=== PATIENT | female | born 1965 | race Caucasian/White ===

== ENCOUNTER 2020-08-22 10:42 | Outpatient (REF) | payer OTHER, SELFPAY ==
[2020-08-22 13:54] LABS: Hematocrit 41.1 % (37-47); Hemoglobin 13.2 g/dl (12.0-16.0); Mean Corpuscular HGB Conc 32.1 g/dl (31.0-35.0); Mean Corpuscular Hemoglobin 30.3 pg (27.0-33.0); Mean Corpuscular Volume 94.3 fL (80-98); Platelet Count 199 X10*3/uL (160-400); Red Blood Count 4.36 X10*6/uL (4.20-5.50); Red Cell Distribution Width 14.3 % (11.0-16.0)
[2020-08-22 14:22] LABS: Alanine Aminotransferase 25 U/L (0-31); Albumin Level 4.1 g/dL (3.5-5.0); Alkaline Phosphatase 168 U/L (39-117); Anion Gap 16 (12-20); Aspartate Amino Transferase 15 U/L (5-31); Bilirubin Direct 0.2 mg/dL (0.0-0.5); Bilirubin Total 0.5 mg/dL (0.0-1.0); Blood Urea Nitrogen 12 mg/dL (9-16); Calcium 9.2 mg/dL (8.4-10.2); Carbon Dioxide 25 mmol/L (22-29); Chloride 103 mmol/L (96-108); Cholesterol 175 mg/dL; Estimated Glomerular Filt Rate > 60; Glucose Fasting 94 mg/dL (60-99); HDL Cholesterol 46 mg/dL; LDL Cholesterol Calculated 112 mg/dl; Potassium 4.2 mmol/L (3.3-5.1); Sodium 140 mmol/L (135-145); Total Protein 7.1 g/dL (6.5-8.0); Triglycerides 86 mg/dL
[2020-08-22 14:43] LABS: TSH reflex Free T4 1.64 uIU/mL (0.32-4.0)
== END 2020-08-22 10:43 | disposition home or self-care (01) ==
LOC: HO.HMGCLDS 10:42
PROVIDERS: PCP Hospitalist; Visit Provider Hospitalist
DX: Z00.00 Encounter for general adult medical examination without abnormal findings (principal)
CPT/HCPCS: 36415; 80048; 80061; 80076; 84443; 85027

== ENCOUNTER 2020-09-12 09:43 | Outpatient (REF) | payer OTHER, SELFPAY ==
[2020-09-16 16:42] LABS: HPV mRNA E6/E7 rflx Not Detected (Not Detected)
== END 2020-09-12 09:44 | disposition home or self-care (01) ==
LOC: HO.LAB 09:43
PROVIDERS: PCP Hospitalist; Visit Provider Obstetrics & Gynecology
DX: Z01.419 Encounter for gynecological examination (general) (routine) without abnormal findings (principal); Z11.51 Encounter for screening for human papillomavirus (HPV)
CPT/HCPCS: 36415; 58301; 87624; 88142

== ENCOUNTER → 2020-10-28 07:32 | Outpatient (BNVA) | payer OTHER, SELFPAY | PROVIDERS: PCP Hospitalist; Visit Provider Physician Assistant ==

== ENCOUNTER → 2020-11-05 14:47 | Outpatient (BNVA) | payer OTHER, SELFPAY | PROVIDERS: PCP Hospitalist; Visit Provider Obstetrics & Gynecology ==

== ENCOUNTER 2020-11-18 08:51 | Outpatient (REF) | payer OTHER, SELFPAY ==
--- NOTE | ~2020-11-18 | MM_ITS ---
EXAMINATION: MM SCREENING DIGITAL BREAST TOMOSYNTHESIS, BILATERAL CLINICAL INFORMATION: Screening. Asymptomatic. Age 55. Family history breast cancer, paternal aunt. Prior outside mammography from [place] currently unavailable. Priors have been requested by radiology staff. The lifetime risk of breast cancer based on the Tyrer-Cuzick Model is 12%. COMPARISON: None. TECHNIQUE: Digital breast tomosynthesis is performed in both the craniocaudal and mediolateral oblique views along with computer-aided detection (CAD). Synthesized 2D images are generated from the tomosynthesis. Additional bilateral CC and additional left MLO views are provided. FINDINGS: There are scattered areas of fibroglandular density (ACR BI-RADS breast composition Category b). There are no significant masses, abnormal calcifications, or other abnormalities. The axilla and skin contours are unremarkable. MM/MM tomosynthesis screening BI IMPRESSION: No mammographic evidence of malignancy. ASSESSMENT: BI-RADS 1: Negative RECOMMENDATION: 1. Routine annual mammography screening. 2. Prior outside mammography from [place] has been requested. If outside exam is made available, comparison will be made in an addendum report. This patient's information was entered into a reminder system with a target due date for their next mammogram.
== END 2020-11-18 08:52 | disposition home or self-care (01) ==
LOC: HO.MAMMO 08:51
PROVIDERS: PCP Hospitalist; Visit Provider Obstetrics & Gynecology
DX: Z12.31 Encounter for screening mammogram for malignant neoplasm of breast (principal)
CPT/HCPCS: 77063; 77067

== ENCOUNTER → 2020-11-19 15:19 | Outpatient (BNVA) | payer OTHER, SELFPAY | PROVIDERS: PCP Hospitalist; Visit Provider Obstetrics & Gynecology ==

== ENCOUNTER → 2020-11-28 13:06 | Outpatient (BNVA) | payer OTHER, SELFPAY | PROVIDERS: PCP Hospitalist; Visit Provider Obstetrics & Gynecology | DX: N95.8 Other specified menopausal and perimenopausal disorders (principal) | CPT/HCPCS: 57160 ==

== ENCOUNTER 2021-12-18 06:59 | Outpatient (REF) | payer OTHER, SELFPAY ==
[2021-12-18 11:30] LABS: Hematocrit 41.3 % (37.0-47.0); Hemoglobin 13.2 g/dl (12.0-16.0); Mean Corpuscular Volume 96.9 fL (80.0-98.0); Mean Platelet Volume 13.3 fL (9.4-12.3); PLT CLUMP 1; Red Blood Count 4.26 X10*6/uL (4.20-5.50); Red Cell Distribution Width 14.9 % (11.0-16.0)
[2021-12-18 12:16] LABS: Platelet Count 171 X10*3/uL (160-400); White Blood Count 7.2 X10*3/uL (4.8-10.8)
== END 2021-12-18 07:00 | disposition home or self-care (01) ==
LOC: HO.WFDLDS 06:59
PROVIDERS: Visit Provider Hospitalist
DX: Z00.00 Encounter for general adult medical examination without abnormal findings (principal)
CPT/HCPCS: 36415; 77063; 77067; 85027

== ENCOUNTER 2021-12-18 08:56 | Outpatient (REF) | payer OTHER, SELFPAY ==
--- NOTE | ~2021-12-18 | MM_ITS ---
EXAMINATION: MM SCREENING DIGITAL BREAST TOMOSYNTHESIS, BILATERAL CLINICAL INFORMATION: Screening. Asymptomatic. The lifetime risk of breast cancer based on the Tyrer-Cuzick Model is 13%. COMPARISON: Mammography: 11/18/2020; outside mammography 07/31/2018 ([facility], [place], [place]). TECHNIQUE: Digital breast tomosynthesis is performed in both the craniocaudal and mediolateral oblique views along with computer-aided detection (CAD). Synthesized 2D images are generated from the tomosynthesis. Additional left CC view is provided. FINDINGS: There are scattered areas of fibroglandular density (ACR BI-RADS breast composition Category b). There are no significant masses, abnormal calcifications, or other abnormalities. Parenchymal pattern is similar to prior studies and there is no developing density or architectural abnormality. The axilla and skin contours are unremarkable. There are no significant changes. MM/MM tomosynthesis screening BI IMPRESSION: No mammographic evidence of malignancy. ASSESSMENT: BI-RADS 1: Negative RECOMMENDATION: Routine annual mammography screening. This patient's information was entered into a reminder system with a target due date for their next mammogram.
== END 2021-12-18 08:57 | disposition home or self-care (01) ==
LOC: HO.MAMMO 08:56
PROVIDERS: PCP Hospitalist; Visit Provider Hospitalist
DX: Z12.31 Encounter for screening mammogram for malignant neoplasm of breast (principal)
CPT/HCPCS: 77063; 77067

== ENCOUNTER 2021-12-21 07:17 | Outpatient (REF) | payer OTHER, SELFPAY ==
[2021-12-21 11:54] LABS: Alanine Aminotransferase 23 U/L (0-31); Albumin Level 4.1 g/dL (3.5-5.0); Alkaline Phosphatase 152 U/L (39-117); Anion Gap 13 (12-20); Aspartate Amino Transferase 17 U/L (5-31); Bilirubin Total 0.4 mg/dL (0.0-1.0); Blood Urea Nitrogen 16 mg/dL (9-16); Calcium 9.4 mg/dL (8.4-10.2); Carbon Dioxide 28 mmol/L (22-29); Chloride 102 mmol/L (96-108); Cholesterol 178 mg/dL; Estimated Glomerular Filt Rate > 60; Glucose Fasting 98 mg/dL (60-99); HDL Cholesterol 47 mg/dL; LDL Cholesterol Calculated 111 mg/dl; Potassium 4.8 mmol/L (3.3-5.1); Sodium 138 mmol/L (135-145); Total Protein 7.1 g/dL (6.5-8.0); Triglycerides 104 mg/dL
[2021-12-21 12:03] LABS: TSH reflex Free T4 1.72 uIU/mL (0.32-4.0)
== END 2021-12-21 07:18 | disposition home or self-care (01) ==
LOC: HO.WFDLDS 07:17
PROVIDERS: Visit Provider Hospitalist
DX: Z00.00 Encounter for general adult medical examination without abnormal findings (principal)
CPT/HCPCS: 36415; 80053; 80061; 84443

== ENCOUNTER → 2022-09-09 08:48 | Outpatient (BNVA) | payer OTHER, SELFPAY | PROVIDERS: PCP Nurse Practitioner Family; Visit Provider Advanced Practice Midwife ==

== ENCOUNTER 2022-11-01 15:39 | Outpatient (REF) | payer OTHER, SELFPAY ==
[2022-11-02 13:23] LABS: Amphetamine Screen Urine Not Detected (Not Detect); Barbiturates, Urine Not Detected (Not Detect); Benzodiazepines Screen Urine Not Detected (Not Detect); Cannabinoid Screen Urine Not Detected (Not Detect); Cocaine Screen Urine Not Detected (Not Detect); Fentanyl, urine Not Detected (Not Detect); Opiate Screen Urine Not Detected (Not Detect); Phencyclidine Screen Urine Not Detected (Not Detect)
== END 2022-11-01 15:40 | disposition home or self-care (01) ==
LOC: HO.LNP 15:39
PROVIDERS: Visit Provider Family Medicine
DX: F32.9 Major depressive disorder, single episode, unspecified (principal); F41.9 Anxiety disorder, unspecified
CPT/HCPCS: 80307

== ENCOUNTER 2023-07-28 15:49 | Outpatient (AMB) | payer OTHER, SELFPAY ==
--- NOTE | 2023-07-28 08:38 | MHC.PC.OV ---
Vital Signs 07/28/23 15:50 Height 5 ft 4 in Weight 213 lb BMI 36.6 BP 132/64 Blood Pressure Location Lt brachial Pulse 82 Pulse Source Pulse Oximeter Pulse Oximetry (%) 97 Oxygen Delivery Method Room Air Intake Visit Reasons: Transfer of Care, anxiety / depression Allergies Sulfa (Sulfonamide Antibiotics) Allergy (Mild, Verified 11/01/22 15:48) rash Tobacco use date assessed: 07/28/23 Dental Screening Dental Screen Date: 07/28/23 Did you have a dental visit in the last 12 months?: Yes Did you have a dental problem in the last 6 months where you did not have access to dental care?: No Was dental information given to patient?: Patient has dentist HPI Transfer of Care, anxiety / depression HPI Details New?patient Prior?PCP: Last?office?visit/CPE: Acute?issue(s): Transfer care Acid reflux PMHx:??HLD, anxiety/depression - Has therapist and provider SurgHx: None FHx: Dad: NHL. Mom: CAD, COPD. SocHx: Smoking Cigs 1/2 ppd, EtOH Social. No drugs PFSH Medical History Smoker Depression Anxiety Family History Father Non-Hodgkin lymphoma Paternal Grandmother Colon cancer Mother COPD (chronic obstructive pulmonary disease) Maternal Aunt History of breast cancer Social History Household Members: Friend(s) Housing: Apartment Alcohol intake: current Alcohol intake frequency: holidays/special occasions only Patient Tobacco Use Status: Current everyday Tobacco user Tobacco use type: Cigarette Cigarette Packs Per Day: 0.5 Cigarettes Per Day: 10 e-Cigarette/Vaping Use: Never Used service: No Current occupational status: unemployed Sexual orientation: Straight/Heterosexual Gender identity: Female Cognitive needs: No Hearing needs: No Vision needs: No Questionnaire PHQ-9 Over the last 2 weeks, how often have you been bothered by any of the following problems? 1. Little interest or pleasure in doing things: nearly every day 2. Feeling down, depressed, or hopeless: several days 3. Trouble falling or staying asleep, or sleeping too much: several days 4. Feeling tired or having little energy: not at all 5. Poor appetite or overeating: nearly every day 6. Feeling bad about yourself - or that you are a failure or have let yourself or your family down: more than half the days 7. Trouble concentrating on things, such as reading the newspaper or watching television: not at all 8. Moving or speaking so slowly that other people could have noticed. Or the opposite - being so fidgety or restless that you have been moving around a lot more than usual: not at all 9. Thoughts that you would be better off or of hurting yourself in some way: several days Total score: 11 Source: Developed by Drs. Skyler Couch, Chelsie Restrepo, Aditya Roy and colleagues, with an educational germain from [employer]. Thrive Questionnaire Date Thrive assessed: 07/28/23 I am a: Patient What is your living situation today?: I have a steady place to live Within the past 12 months, did the food you bought not last and you didn't have the money to get more?: Never true Within the past 12 months, did you worry whether your food would run out before you got money to buy more?: Never true Do you have trouble paying for medicines?: No Do you have trouble getting transportation to medical appointments?: No Do you have trouble paying your heating and electricity bill?: No Do you have trouble taking care of your child, family member or friend?: No Do you have trouble with day-to-day activities such as bathing, preparing meals, shopping, managing finances, etc.?: No Are you currently unemployed and looking for a job?: No Are you interested in more education?: No THRIVE Score: 0 AUDIT C Alcohol Use Questionnaire (AUDIT-C) 1. How often do you have a drink containing alcohol?: Monthly or less 2. How many drinks containing alcohol do you have on a typical day when you are drinking?: 1 or 2 3. How often do you have six or more drinks on one occasion?: Never Total Score: 1 ZHOU-7 AMB Questionnaire ZHOU-7 Date ZHOU - 7 assessed: 07/28/23 Feeling nervous, anxious, or on edge: 1 = Several days Not being able to stop or control worryin = Several days Worrying too much about different things: 1 = Several days Trouble relaxin = Several days Being so restless that it is hard to sit still: 0 = Not at all Becoming easily annoyed or irritable: 1 = Several days Feeling afraid as if something awful might happen: 0 = Not at all Total ZHOU-7 score (0-4 normal; 5-9 mild; 10-14 moderate; 15-21 severe): 5 Source: Developed by Drs. Skyler Couch, Chelsie Restrepo, Aditya Roy and colleagues, with an educational germain from [employer]. Review of Systems Const Denies chills, Denies fatigue, Denies fever(s), Denies headache(s) and Denies weakness ENT Denies dizziness and Denies headache(s) Card Denies chest pain, Denies lightheadedness, Denies dyspnea and Denies other (Palpitations) Resp Denies cough, Denies dyspnea, Denies wheezing and Denies other ( shortness of breath) GI Details: GERD Musc Denies numbness and Denies tingling Neuro Denies dizziness, Denies headache(s), Denies numbness, Denies tingling, Denies paresthesias and Denies weakness Psych Denies anxiety and Denies depression Endo Denies fatigue Aller/Immun Denies wheezing Physical exam (Primary Care) Tobacco/Smoking Status: Tobacco use Status Tobacco use date assessed 12/15/21 07/28/23 08:39 Patient Tobacco Use Status Current everyday Tobacco 07/28/23 08:39 Tobacco use type Cigarette 07/28/23 08:39 e-Cigarette/Vaping Use Never Used 07/28/23 08:39 Thrive Assessment: Date of Thrive Assessment Date Thrive assessed 08/06/22 07/28/23 08:39 Const General: no acute distress and well developed Nutritional Appearance: well nourished Orientation/consciousness: patient oriented x3 HENMT Head: Yes normocephalic and Yes atraumatic Eyes General: appearance normal, both eyes and all related structures Pupils: Equal, round and reactive pupils present EOM: EOMs intact bilaterally Resp Other: Mildly?distant?breath?sounds?but?otherwise?clear?to?auscultation?bilaterally Effort & Inspection: normal respiratory effort Auscultation: clear to auscultation bilaterally Cardio Rate: regular rate Rhythm: regular rhythm Heart sounds: S1 normal heart sound present, S2 normal heart sound present, no gallops, no murmurs and no rubs Neuro General: patient oriented x3 and gait normal Cranial nerves: Yes Equal, round and reactive pupils present Psych Affect: normal affect Assessment and Plan Assessment & Plan (1) GERD (gastroesophageal reflux disease): Code(s): K21.9 - Gastro-esophageal reflux disease without esophagitis Plan: Significant?GERD?and?gastritis?symptoms. She?has?been?taking?famotidine?OTC Will?give?her?a?script?for?this Also?referring?her?to?GI (2) Anxiety and depression: Code(s): F41.9 - Anxiety disorder, unspecified; F32.9 - Major depressive disorder, single episode, unspecified Plan: Has?significant?stressors?including?work?and?living?arrangements?with?her?ex- She?has?a?therapist?whom?she?sees?regularly?and?a psych?med?provider Stable?on?current?treatments Continue?therapy?and?psych?meds?as?prescribed (3) Obesity (BMI 35.0-39.9 without comorbidity): Code(s): E66.9 - Obesity, unspecified Plan: She?has?had?weight?increases?and?is?frustrated?about?this. Discussed?healthy?diet?and?planning?for?weight?loss. She?will?continue?to?work?at?this (4) Smoker: Code(s): F17.200 - Nicotine dependence, unspecified, uncomplicated Plan: Encouraged?weaning?and?cessation (5) High cholesterol: Code(s): E78.00 - Pure hypercholesterolemia, unspecified Plan: Patient?is?taking?atorvastatin?40?mg?daily Continue?current?medication Check?lipids EKG?today?shows?mildly?low?voltages, ?normal?sinus?rhythm,?normal?axis,?normal?intervals,?no?hypertrophy?and?no?ST-T-wave?changes. (6) Laboratory examination ordered as part of a routine general medical examination: Code(s): Z00.00 - Encounter for general adult medical examination without abnormal findings Plan: Check?lab Orders: Orders Lipid Panel Today Z00.00 - Encounter for general adult medical examination without abnormal findings Microalbumin, Random (w Creat) Today I10 - Essential (primary) hypertension TSH reflex Free T4 Today Z00.00 - Encounter for general adult medical examination without abnormal findings UA and rflx microscopic Today Z00.00 - Encounter for general adult medical examination without abnormal findings AMB EKG-In Office Today E66.9 - Obesity, unspecified, E78.00 - Pure hypercholesterolemia, unspecified, F17.200 - Nicotine dependence, unspecified, uncomplicated Comprehensive [place]. Panel Fast Today Z00.00 - Encounter for general adult medical examination without abnormal findings Vitamin D 25-OH Total Today E55.9 - Vitamin D deficiency, unspecified H pylori Ag Stool Today K21.9 - Gastro-esophageal reflux disease without esophagitis Complete Blood Count Auto Diff Today Z00.00 - Encounter for general adult medical examination without abnormal findings Referrals Gastroenterology Referral K21.9 - Gastro-esophageal reflux disease without esophagitis, Z12.11 - Encounter for screening for malignant neoplasm of colon Medications: New famotidine (Acid Sample Maker Original (famotidine)) 20 mg PO DAILY 90 days 90 tabs 2RF Coding Level of Care Code Est Pt Level 4 (69277) Diagnoses GERD (gastroesophageal reflux disease) K21.9 Anxiety and depression F41.9; F32.9 Obesity (BMI 35.0-39.9 without comorbidity) E66.9 Smoker F17.200 High cholesterol E78.00 Laboratory examination ordered as part of a routine general medical examination Z00.00
[2023-07-28 15:50] VITALS: BP 132/64; PULSE 82; O2SAT 97; BMI 36.6
== END 2023-07-28 17:00 ==
PROVIDERS: PCP Hospitalist; Visit Provider Family Medicine
DX: K21.9 Gastro-esophageal reflux disease without esophagitis (principal); E66.9 Obesity, unspecified; Z68.36 Body mass index [BMI] 36.0-36.9, adult; F41.9 Anxiety disorder, unspecified; F32.9 Major depressive disorder, single episode, unspecified; F17.210 Nicotine dependence, cigarettes, uncomplicated; E78.00 Pure hypercholesterolemia, unspecified
CPT/HCPCS: 99214

== ENCOUNTER 2023-09-30 10:46 | Outpatient (AMB) | payer OTHER, SELFPAY ==
--- NOTE | 2023-09-30 10:48 | A.OFFVIS_ITS ---
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 She is doing well with no concerns. Admits to a horrible diet , and lacks exercise due to depression and not leaving her house often. Currently newly sexually active. Denies any irritation. Admits to some dryness and discomfort. STI testing offered; she accepts. Declines STD blood work. Last pap smear; 2020. Last mammogram; 2021. Colonoscopy is UTD. Denies any family history of ovarian or colon cancer. M.aunt w/breast cancer. Smoker, not able to quit at this time. [facility] Medical History Smoker Depression Anxiety Family History Father Non-Hodgkin lymphoma Paternal Grandmother Colon cancer Mother COPD (chronic obstructive pulmonary disease) Maternal Aunt History of breast cancer Social History Household Members: Friend(s) Housing: Apartment Alcohol intake: current Alcohol intake frequency: holidays/special occasions only Patient Tobacco Use Status: Current everyday Tobacco user Tobacco use type: Cigarette Cigarette Packs Per Day: 0.5 Cigarettes Per Day: 20 e-Cigarette/Vaping Use: Never Used service: No Current occupational status: unemployed Sexual orientation: Straight/Heterosexual Gender identity: Female Cognitive needs: No Hearing needs: No Vision needs: No Female Reproductive History Menstrual Total pregnancies: 0 Date of last pap smear: 09/15/20 Date of Mammogram: 12/18/21 Review of Systems Const All systems reviewed & are unremarkable except as noted in HPI and below Reports as per HPI Eyes Reports no additional complaints ENT Reports no additional complaints Card Reports no additional complaints Resp Reports no additional complaints GI Reports as per HPI and Reports no additional complaints Reports as per HPI Musc Reports no additional complaints Skin/Breast Reports as per HPI Neuro Reports no additional complaints Psych Reports no additional complaints Endo Reports no additional complaints Alfonzo/Lymph Reports no additional complaints Aller/Immun Reports no additional complaints Physical Exam Vital Signs: Last Vital Signs BP 124/72 09/30/23 10:53 BMI result Body Mass Index 35.5 Const General: cooperative, healthy appearing, no acute distress, well developed and alert Orientation/consciousness: patient oriented x3 HEENT Head: Yes normal to inspection Eyes General: appearance normal, both eyes and all related structures Neck Neck: Yes normal visual inspection Thyroid: Thyroid normal Chest Chest palpation & inspection: normal inspection of the chest and other (no puckering, dimpling, peau de orange, retraction, discharge, masses) Breast/axilla inspection: normal inspection of the breasts Breast/axilla palpation: normal palpation of the breasts Resp Effort & Inspection: normal respiratory effort GI Inspection: Yes normal to inspection Palpation (GI): Soft to palpation Rectal Exam - Female: deferred General: Yes bladder normal to palpation External Female Exam: normal external appearance and normal appearance of the urethra Speculum Exam - Vagina: normal appearance of the vagina, normal palpation and normal vaginal discharge Speculum Exam - Cervix: normal appearance of the cervix and normal palpation Bimanual exam- vagina & uterus: normal bimanual exam, normal palpation, uterine size normal, bladder normal to palpation, normal palpation and non-tender Bimanual Exam- Adnexa, other: no masses Skin General skin exam: no rashes or lesions noted Rashes: no rashes Neuro General: patient oriented x3 Cognition (Neuro): normal cognition Extrem General: Yes normal to inspection Psych Attitude: cooperative Thought process: Normal thought process present Assessment & Plan Assessment & Plan (1) Encounter for well woman exam with routine gynecological exam: Code(s): Z01.419 - Encounter for gynecological examination (general) (routine) without abnormal findings Plan Discussed: Current recommendations for pap smears per ASCCP guidelines. Breast awareness, periodic self breast exams and yearly mammogram. Maintain a healthy lifestyle, well balanced diet including Calcium 1,200 mg and Vitamin D 600 IU daily, and routine exercise. Replens moisturizer and lubricant products. Encouraged tobacco cessation. Contact the office with any postmenopausal bleeding. Patient verbalizes understanding and agrees to the plan of care. She was given opportunity to ask questions and all questions were answered to the best of my ability. 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 This note is constructed using voice recognition software. While every effort has been made to ensure accuracy, mirror painter errors may have been included. Orders: Orders CT NG by PCR Today A64 - Unspecified sexually transmitted disease Bacterial Vaginosis Panel Today A64 - Unspecified sexually transmitted disease Coding Level of Care Code Est Pt Prev Care 40-64y(85808) Diagnoses Encounter for well woman exam with routine gynecological exam Z01.419
[2023-09-30 10:53] VITALS: BP 124/72; BMI 35.5
== END 2023-09-30 11:29 | disposition home or self-care (01) ==
PROVIDERS: PCP Hospitalist; Visit Provider Advanced Practice Midwife
DX: Z01.419 Encounter for gynecological examination (general) (routine) without abnormal findings (principal)
CPT/HCPCS: 99396

== ENCOUNTER 2023-09-30 11:27 | Outpatient (REF) | payer OTHER, SELFPAY ==
[2023-09-30 13:55] LABS: CT PCR NOT DETECTED (Not Detect.); NG PCR NOT DETECTED (Not Detect.)
[2023-10-01 11:15] LABS: BV Int Neg Control Negative (Negative); BV Int Pos Control Positive (Positive)
== END 2023-09-30 11:28 | disposition home or self-care (01) ==
LOC: HO.LNP 11:27
PROVIDERS: Visit Provider Advanced Practice Midwife
DX: A64 Unspecified sexually transmitted disease (principal)
CPT/HCPCS: 0353U; 87480; 87510; 87660

== ENCOUNTER 2023-09-30 11:43 | Outpatient (REF) | payer OTHER, SELFPAY | END 2023-09-30 11:44 | disposition home or self-care (01) | LOC: HO.MAMMO 11:43 | PROVIDERS: PCP Family Medicine; Visit Provider Family Medicine | DX: Z12.31 Encounter for screening mammogram for malignant neoplasm of breast (principal) | CPT/HCPCS: 77063; 77067; 99396 ==

== ENCOUNTER → 2023-09-30 12:30 | Outpatient (BNV) | payer OTHER, SELFPAY | PROVIDERS: PCP Family Medicine; Visit Provider Radiology Diagnostic Radiology | DX: Z12.31 Encounter for screening mammogram for malignant neoplasm of breast (principal) | CPT/HCPCS: 77063; 77067 ==

== ENCOUNTER 2024-03-28 12:24 | Outpatient (REF) | payer OTHER, SELFPAY ==
[2024-03-28 14:56] LABS: Appearance Urine Cloudy; Color Urine Yellow; Glucose Urine UA Negative (Negative); Leukocyte Esterase Urine Small (1+) (Negative); Nitrite Urine Negative (Negative); PH 5.5 (5.0-9.0); Specific Gravity - Urine 1.025 (1.005-1.025); UMIC TRIGGER UA YES; Urine Blood Negative (Negative); Urine Ketones Trace mg/dL (Negative); Urine Protein Trace mg/dL (Neg-Trace)
[2024-03-28 15:02] LABS: MANUAL DIFF FLAG NO
[2024-03-28 15:06] LABS: Basophils Absolute Auto 0.1 X10*3/uL (0.0-0.2); Basophils Percent Auto 0.7 % (0-2); Eosinophils Absolute Auto 0.1 X10*3/uL (0.0-0.4); Eosinophils Percent Auto 1.6 % (0-4); Hematocrit 41.5 % (37.0-47.0); Hemoglobin 13.7 g/dl (12.0-16.0); Imm Gran Abs Auto 0.03 X10*3/uL (0.00-0.03); Imm Gran Pct Auto 0.4 % (0.0-0.4); Mean Corpuscular Hemoglobin 31.8 pg (27.0-33.0); Mean Corpuscular Volume 96.3 fL (80.0-98.0); Mean Platelet Volume 12.6 fL (9.4-12.3); Monocytes Absolute Auto 0.5 X10*3/uL (0.1-1.2); Monocytes Percent Auto 5.5 % (2-11); Neutrophils Absolute Auto 5.7 x10*3/uL (2.0-8.3); Neutrophils Percent Auto 67.8 % (45-73); Platelet Count 223 X10*3/uL (160-400); Red Blood Count 4.31 X10*6/uL (4.20-5.50); White Blood Count 8.3 X10*3/uL (4.8-10.8)
[2024-03-28 15:12] LABS: Bacteria Urine 3+ (None Seen); Calcium Oxalate Crystals Urine Present; Hyaline Casts Urine 0-2 /LPF (0-2); RBC Urine 0-2 /HPF (0-2); Squamous Epithelial Cell Urine >20 /HPF (0-2)
[2024-03-28 16:28] LABS: Creatinine Urine 149.07 mg/dL; Microalbum/Creatinine Ratio Ur 7.3 ug/mg cr (<30)
[2024-03-28 16:28] LABS: Alanine Aminotransferase 17 U/L (0-31); Albumin Level 4.1 g/dL (3.5-5.0); Alkaline Phosphatase 143 U/L (39-117); Anion Gap 16 (12-20); Aspartate Amino Transferase 14 U/L (5-31); Bilirubin Total 0.2 mg/dL (0.0-1.0); Blood Urea Nitrogen 15 mg/dL (9-16); Calcium 9.8 mg/dL (8.4-10.2); Carbon Dioxide 27 mmol/L (22-29); Chloride 102 mmol/L (96-108); Cholesterol 185 mg/dL (<200); Estimated Glomerular Filt Rate > 60; Glucose Fasting 90 mg/dL (60-99); HDL Cholesterol 46 mg/dL (>40); LDL Cholesterol Calculated 102 mg/dL (<100); Potassium 4.2 mmol/L (3.3-5.1); Sodium 141 mmol/L (135-145); Total Protein 7.5 g/dL (6.5-8.0); Triglycerides 188 mg/dL (<150)
[2024-03-28 16:46] LABS: Vitamin D 25-OH Total 33.5 ng/mL (>30)
[2024-03-28 17:20] LABS: TSH reflex Free T4 1.21 uIU/mL (0.32-4.0)
== END 2024-03-28 12:25 | disposition home or self-care (01) ==
LOC: HO.WFDLDS 12:24
PROVIDERS: Visit Provider Family Medicine
DX: Z00.00 Encounter for general adult medical examination without abnormal findings (principal); I10 Essential (primary) hypertension; E55.9 Vitamin D deficiency, unspecified
CPT/HCPCS: 36415; 80053; 80061; 81001; 82043; 82306; 82570; 84443; 85025

== ENCOUNTER 2024-04-02 11:32 | Outpatient (AMB) | payer OTHER, SELFPAY ==
--- NOTE | 2024-04-02 11:43 | A.OFFPC_ITS ---
Vital Signs 04/02/24 11:50 Height 5 ft 4 in Weight 208 lb BMI 35.7 BP 106/70 Blood Pressure Location Lt brachial Position Sitting Respiration 14 Pulse 84 Pulse Source Pulse Oximeter Temp 97.9 F Temp Source Oral Pulse Oximetry (%) 95 Oxygen Delivery Method Room Air Intake Visit Reasons: Follow Up Intake Note: f/u labs Allergies Sulfa (Sulfonamide Antibiotics) Allergy (Mild, Verified 04/02/24 11:43) rash Medication List - Last Reconciled 04/02/24 by Matt Arguelles MD atorvastatin 40 mg PO DAILY 90 days famotidine (Acid Hot Water Heater Installer (famotidine)) 20 mg PO DAILY 90 days lamotrigine 75 mg PO BID quetiapine (Seroquel) 300 mg PO BEDTIME quetiapine ER (Seroquel XR) 100 mg PO DAILY venlafaxine ER 150 mg PO QAM Tobacco use date assessed: 07/28/23 Dental Screening Dental Screen Date: 07/28/23 HPI Follow Up HPI Details 58 y/o female presents to f/u chronic co nditions including labs. Labs drawn 03/28/24. Reviewed labs with pt Triglycerides 188. TC 185. LDL 102. HDL 46. She is on artovastatin 40mg daily. Vitamin D 33.5 ng/mL. Urine showed some bacteria and calcium present. Pt notes she has not had a colonoscopy before. Pt notes ongoing complaints of obesity. [facility] Medical History Smoker Depression Anxiety Family History Father Non-Hodgkin lymphoma Paternal Grandmother Colon cancer Mother COPD (chronic obstructive pulmonary disease) Maternal Aunt History of breast cancer Social History Household Members: Friend(s) Housing: Apartment Alcohol intake: current Alcohol intake frequency: holidays/special occasions only Patient Tobacco Use Status: Current everyday Tobacco user Tobacco use type: Cigarette Cigarette Packs Per Day: 0.5 Cigarettes Per Day: 20 e-Cigarette/Vaping Use: Never Used service: No Current occupational status: unemployed Sexual orientation: Straight/Heterosexual Gender identity: Female Cognitive needs: No Hearing needs: No Vision needs: No Questionnaire Thrive Questionnaire Date Thrive assessed: 07/28/23 ZHOU-7 AMB Questionnaire ZHOU-7 Date ZHOU - 7 assessed: 07/28/23 Source: Developed by Drs. Skyler Couch, Chelsie Restrepo, Aditya Roy and colleagues, with an educational germain from [employer]. Review of Systems Const Denies chills, Denies fatigue, Denies fever(s), Denies headache(s) and Denies weakness ENT Denies dizziness and Denies headache(s) Card Denies dyspnea Resp Denies cough, Denies dyspnea, Denies wheezing and Denies other (shortness of breath) Musc Denies numbness and Denies tingling Neuro Denies dizziness, Denies headache(s), Denies numbness, Denies tingling and Denies weakness Psych Denies anxiety and Denies depression Endo Denies fatigue Aller/Immun Denies wheezing Physical exam (Primary Care) Vital Signs: Last Vital Signs Temp 97.9 F 04/02/24 11:50 Pulse 84 04/02/24 11:50 Resp 14 04/02/24 11:50 BP 106/70 04/02/24 11:50 Pulse Ox 95 04/02/24 11:50 Oxygen Delivery Method Room Air 04/02/24 11:50 BMI result Body Mass Index 35.7 Tobacco/Smoking Status: Tobacco use Status Tobacco use date assessed 07/28/23 04/02/24 11:49 Patient Tobacco Use Status Current everyday Tobacco 04/02/24 11:49 Tobacco use type Cigarette 04/02/24 11:49 e-Cigarette/Vaping Use Never Used 04/02/24 11:49 Thrive Assessment: Date of Thrive Assessment Date Thrive assessed 07/28/23 04/02/24 11:49 Const General: well developed; No acute distress Nutritional Appearance: well nourished and obese Orientation/consciousness: patient oriented x3 HENMT Head: Yes normocephalic and Yes atraumatic Eyes General: appearance normal, both eyes and all related structures Pupils: Equal, round and reactive pupils present EOM: EOMs intact bilaterally Resp Effort & Inspection: normal respiratory effort Auscultation: clear to auscultation bilaterally Cardio Rate: regular rate Rhythm: regular rhythm Heart sounds: S1 normal heart sound present, S2 normal heart sound present, no gallops, no murmurs and no rubs Neuro General: patient oriented x3 and gait normal Cranial nerves: Yes Equal, round and reactive pupils present Psych Affect: normal affect Assessment and Plan Assessment & Plan (1) High cholesterol: Code(s): E78.00 - Pure hypercholesterolemia, unspecified Plan: Cholesterol?is?slightly?above?goal She?is?on?atorvastatin?and?will?continue. Work?at?a?diet?lower?in?saturated?fats?and?cholesterol.??Work?at?weight?loss (2) Bacteria in urine: Code(s): R82.71 - Bacteriuria Plan: Bacteriuria?with?some?urgency. From?her?description?it?sounds?like?the?urgency?is?not?related?to?bacteriuria. However?I?will?send?script?fo r?nitrofurantoin.??She?will?work?at?hydrating?well?and?voiding?scheduled. If?she?is?still?having?symptoms?she?will?take?Macrobid.??Script?sent (3) GERD (gastroesophageal reflux disease): Code(s): K21.9 - Gastro-esophageal reflux disease without esophagitis Plan: Patient?had?issues?with?NUVIA D/gastritis?and?discomfort?in?her?throat?with?swallowing Had?referred?her?to?GI?but?she?did?not?follow?through?with?this. Also?a?smoker Referred?to?GI (4) Encounter for screening colonoscopy: Comment: Index screening colonoscopy Code(s): Z12.11 - Encounter for screening for malignant neoplasm of colon Plan: Patient?has?never?had?a?colonoscopy.??Referred?to?GI (5) Obesity (BMI 35.0-39.9 without comorbidity): Code(s): E66.9 - Obesity, unspecified Plan: Patient?would?like?to?try?Ozempic No?contraindications?to?this. Will?s end?script.??We?discussed?that?it?is?up?to?her?insurance?to?decide?if?they?will? pay?for?Ozempic Orders: Referrals Gastroenterology Referral F17.200 - Nicotine dependence, unspecified, uncomplicated, K21.9 - Gastro-esophageal reflux disease without esophagitis, Z12.11 - Encounter for screening for malignant neoplasm of colon Medications: New nitrofurantoin monohyd/m-cryst 100 mg (Macrobid) must administer with a meal/food 100 mg PO BID 7 days 14 caps 0RF Coding Level of Care Code Est Pt Level 4 (12538) Diagnoses High cholesterol E78.00 Bacteria in urine R82.71 GERD (gastroesophageal reflux disease) K21.9 Encounter for screening colonoscopy Z12.11 Obesity (BMI 35.0-39.9 without comorbidity) E66.9
[2024-04-02 11:50] VITALS: BP 106/70; PULSE 84; RESP 14; TEMP 36.6; O2SAT 95; BMI 35.7
== END 2024-04-02 12:25 | disposition home or self-care (01) ==
PROVIDERS: PCP Family Medicine; Visit Provider Family Medicine
DX: E78.00 Pure hypercholesterolemia, unspecified (principal); R82.71 Bacteriuria; Z68.35 Body mass index [BMI] 35.0-35.9, adult; E66.9 Obesity, unspecified; K21.9 Gastro-esophageal reflux disease without esophagitis; Z12.11 Encounter for screening for malignant neoplasm of colon

== ENCOUNTER → 2024-04-02 11:32 | Outpatient (BNVA) | payer OTHER, SELFPAY | PROVIDERS: PCP Family Medicine; Visit Provider Family Medicine | DX: R82.71 Bacteriuria (principal); E78.00 Pure hypercholesterolemia, unspecified; K21.9 Gastro-esophageal reflux disease without esophagitis; E66.9 Obesity, unspecified | CPT/HCPCS: 99212 ==

== ENCOUNTER 2024-10-03 08:34 | Outpatient (REF) | payer OTHER, SELFPAY ==
--- OUTSIDE RECORDS SUMMARY | 2024-10-03 08:57 | XMS_ITS | Data Portability ---
Author Organization [place] [facility] Address [address] [place] [address] Assessment No assessment recorded. Plan of Treatment Reminders Order Date Submit Date Provider Last Modified By Organization Details Last Modified Time Details Appointments None recorded. Lab TSH + free T4, serum 2019 020 [facility], [address] [place], [address], 1 09:16:48 CMP, serum or plasma 2019 020 [facility], [address] [place], [address], 1 09:16:48 lipid panel, serum 2019 020 [facility], [address] [place], [address], 1 09:16:48 CBC w/ auto diff 2019 020 HAN[facility], [address] [place], [address], 0 08:12:22 CMP, serum or plasma 2019 020 HAN[facility], [address] [place], [address], 0 08:12:23 TSH + free T4, serum 2019 020 HANSA [facility], [address] [place], [address], 0 08:12:21 vitamin D, 25-hydroxy , total, serum 2019 HANSA [facility], [address] [place], [address], 0 08:12:25 lipid panel, serum 2019 HANSA [facility], [address] [place], [address], 0 08:12:[address] referral [address] [facility], [address] [facility], [facility] [address], [place], [address], 1 15:28:57 Procedures None recorded. Surgeries None recorded. Imaging XR, knee, 3 view 2019 [place] [address] [address] [facility], [place], [address], 1 08:53:47 MRI, knee, w/o contrast [address] Centralized Scheduling, [address] [place], [address], 1 16:24:11 MAMMO, screening, bilateral [address] [facility], [address] [facility] [place], [address], 1 08:26:02 Medication Orders ibuprofen 800 mg tablet 2019 [facility], [address] [facility], [place], [place], [id number], 0 10:39:17 celecoxib 100 mg capsule 2019 INTERFACE [facility], [address], [address], [place], [place], [id number], 0 10:39:18 atorvastat in 40 mg tablet 2019 020 [facility]FACE [facility], [address], [address], [place], [place], [id number], 0 10:39:16 Voltaren 1 % topical gel 2019 020 [facility], [address], [address], [place], [place], [id number], 0 12:17:28 ibuprofen 800 mg tablet 2019 INTERFACE [facility], [address], [address], [place], [place], [id number], 0 12:17:29 atorvastat in 40 mg tablet 2019 020 [facility]FACE [facility], [address], [address], [place], [place], [id number], 0 12:17:27 Patient TargetsNo targets recorded. Patient Instructions Encounter Date Encounter Id Patient Instructions Last Modified By Organization Details Last Modified Time 03/28/2020 [id number] eating healthy foods: care instructions Not available 03/28/2020 12:17:06 Patient instructed of the benefits and risks of the treatment. Patient verbalized undertanding. Not available 03/28/2020 12:56:15 04/18/2020 [id number] hyperkalemia: care instructions Not available 04/18/2020 10:26:52 high cholesterol : care instructions Not available 04/18/2020 10:24:46 eating healthy foods: care instructions Not available 04/18/2020 10:15:25 06/13/2020 [id number] Patient instructed of the risk and benefit of the current treatment. Patient voiced understanding. 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 Co ntraception care management removal of mirena IUD Referring Physician: Shannan Villanueva, Family Medicine, Encounter Date: 03/28/2020 Results Created Date Observation Date Name Description Value Unit Range Abnormal Flag Note LastModifiedBy Organization Detail LastModifiedTime 04/02/2004/03/2020 TSH + free T4, serum TSH 1.940 uIU/m L 0.450- 4.500 Not Available [facility] ([facility]) [address] [place], [address], 04/03/2020 08:12:21 04/02/2004/03/2020 TSH + free T4, serum T4,free(dire ct) 0.79 NG/dL 0.82-1 .77 below low normal Not Available [facility] ([facility]) [address] [place], [address], 04/03/2020 08:12:21 04/02/2004/03/2020 CBC w/ auto diff WBC 6.7 x10e3 /uL 3.4-10 .8 Not Available [facility] ([facility]) [address] [place], [address], 04/03/2020 08:12:22 04/02/2004/03/2020 CBC w/ auto diff RBC 4.30 x10e6 /uL 3.77-5 .28 Not Available [facility] ([facility]) [address] [place], [address], 04/03/2020 08:12:22 04/02/2004/03/2020 CBC w/ auto diff hemoglobin 13.4 g/dL 11.1-1 5.9 Not Available [facility] ([facility]) [address] [place], [address], 04/03/2020 08:12:22 04/02/2004/03/2020 CBC w/ auto diff hematocrit 40.3 % 34.0-4 6.6 Not Available [facility] ([facility]) [address] [facility], [place], [address], 04/03/2020 08:12:22 04/02/20 20 04/03/2020 CBC w/ auto diff MCV 94 fL 79-97 Not Available [facility] ([facility]) [address] [facility], [place], [address], 04/03/2020 08:12:22 04/02/2004/03/2020 CBC w/ auto diff MCH 31.2 pg 26.6-3 3.0 Not Available [facility] ([facility]) [address] [facility], [place], [address], 04/03/2020 08:12:22 04/02/20 20 04/03/2020 CBC w/ auto diff MCHC 33.3 g/dL 31.5-3 5.7 Not Available [facility] ([facility]) [address] [facility], [place], [address], 04/03/2020 08:12:22 04/02/2004/03/2020 CBC w/ auto diff RDW 14.9 % 11.7-1 5.4 Not Available [facility] ([facility]) [address] [facility], [place], [address], 04/03/2020 08:12:22 04/02/2004/03/2020 CBC w/ auto diff platelets 264 x10e3 /uL 150-45 0 Not Available [facility] ([facility]) [address] [facility], [place], [address], 04/03/2020 08:12:22 04/02/20 20 04/03/2020 CBC w/ auto diff neutrophils 54 % not estab. Not Available [facility] ([facility]) [address] [facility], [place], [address], 04/03/2020 08:12:22 04/02/2004/03/2020 CBC w/ auto diff lymphs 35 % not estab. Not Available [facility] ([facility]) [address] [facility], [place], [address], 04/03/2020 08:12:22 04/02/20 20 04/03/2020 CBC w/ auto diff monocytes 5 % not estab. Not Available [facility] ([facility]) [address] [facility], [place], [address], 04/03/2020 08:12:22 04/02/20 20 04/03/2020 CBC w/ auto diff eos 5 % not estab. Not Available [facility] ([facility]) [address] [place], [address], 04/03/2020 08:12:22 04/02/20 20 04/03/2020 CBC w/ auto diff basos 1 % not estab. 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 0 Not Available [facility] ([facility]) [address] [place], [address], 04/03/2020 08:12:22 04/02/20 20 04/03/2020 CBC w/ auto diff lymphs (absolute) 2.3 x10e3 /uL 0.7-3. 1 Not Available [facility] ([facility]) [address] [place], [address], 04/03/2020 08:12:22 04/02/20 20 04/03/2020 CBC w/ auto diff monocytes(ab solute) 0.3 x10e3 /uL 0.1-0. 9 Not Available [facility] ([facility]) [address] [place], [address], 04/03/2020 08:12:22 04/02/20 20 04/03/2020 CBC w/ auto diff eos (absolute) 0.3 x10e3 /uL 0.0-0. 4 Not Available [facility] ([facility]) [address] [place], [address], 04/03/2020 08:12:22 04/02/20 20 04/03/2020 CBC w/ auto diff baso (absolute) 0.0 x10e3 /uL 0.0-0. 2 Not Available [facility] ([facility]) [address] [facility], [place], [address], 04/03/2020 08:12:22 04/02/2004/03/2020 CBC w/ auto diff immature granulocytes 0 % not estab. Not Available [facility] ([facility]) [address] [place], [address], 04/03/2020 08:12:22 04/02/20 20 04/03/2020 CBC w/ auto diff immature grans (abs) 0.0 x10e3 /uL 0.0-0. 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 Clini arturo corre latio n indic ated. Not Available [facility] ([facility]) [address] [place], [address], 04/03/2020 08:12:23 04/02/20 20 04/03/2020 CMP, serum or plasm a BUN 13 mg/dL 6-24 Not Available [facility] ([facility]) [address] [place], [address], 04/03/2020 08:12:23 04/02/2004/03/2020 CMP, serum or plasm a creatinine 0.87 mg/dL 0.57-1 .00 Not Available [facility] ([facility]) [address] [place], [address], 04/03/2020 08:12:23 04/02/20 20 04/03/2020 CMP, serum or plasm a eGFR if nonafricn AM 77 mL/mi n/1.7 3 >59 Not Available [facility] ([facility]) [address] [place], [address], 04/03/2020 08:12:23 04/02/20 20 04/03/2020 CMP, serum or plasm a eGFR if africn AM 89 mL/mi n/1.7 3 >59 Not Available [facility] ([facility]) [address] [place], [address], 04/03/2020 08:12:23 04/02/2004/03/2020 CMP, serum or plasm a BUN/creatini ne ratio 15 9-23 Not Available [facility] ([facility]) [address] [place], [address], 04/03/2020 08:12:23 04/02/20 20 04/03/2020 CMP, serum or plasm a sodium 138 mmol/ L 134-14 4 Not Available [facility] ([facility]) [address] [facility] [place], [address], 04/03/2020 08:12:23 04/02/2004/03/2020 CMP, serum or plasm a potassium 5.4 mmol/ L 3.5-5. 2 above high normal Speci men recei bladimir hemol yzed. Clini arturo corre latio n indic ated. Not Available [facility] ([facility]) [address] [place], [address], 04/03/2020 08:12:23 04/02/2004/03/2020 CMP, serum or plasm a chloride 99 mmol/ L 96-106 Not Available [facility] ([facility]) [address] [place], [address], 04/03/2020 08:12:23 04/02/2004/03/2020 CMP, serum or plasm a carbon dioxide, total 22 mmol/ L 20-29 Not Available [facility] ([facility]) [address] [facility] [place], [address], 04/03/2020 08:12:23 04/02/2004/03/2020 CMP, serum or plasm a calcium 9.2 mg/dL 8.7-10 .2 Not Available [facility] ([facility]) [address] [place], [address], 04/03/2020 08:12:23 04/02/2004/03/2020 CMP, serum or plasm a protein, total 6.9 g/dL 6.0-8. 5 Not Available [facility] ([facility]) [address] [place], [address], 04/03/2020 08:12:23 04/02/2004/03/2020 CMP, serum or plasm a albumin 4.0 g/dL 3.8-4. 9 Not Available [facility] ([facility]) [address] [facility] [place], [address], 04/03/2020 08:12:23 04/02/2004/03/2020 CMP, serum or plasm a globulin, total 2.9 g/dL 1.5-4. 5 Not Available [facility] ([facility]) [address] [facility] [place], [address], 04/03/2020 08:12:23 04/02/2004/03/2020 CMP, serum or plasm a A/G ratio 1.4 1.2-2. 2 Not Available [facility] ([facility]) [address] [facility] [place], [address], 04/03/2020 08:12:23 04/02/2004/03/2020 CMP, serum or plasm a bilirubin, total <0.2 mg/dL 0.0-1. 2 Not Available [facility] ([facility]) [address] [facility] [place], [address], 04/03/2020 08:12:23 04/02/2004/03/2020 CMP, serum or plasm a alkaline phosphatase 160 IU/L 39-117 above high normal Not Available [facility] ([facility]) [address] [facility] [place], [address], 04/03/2020 08:12:23 04/02/2004/03/2020 CMP, serum or plasm a AST (SGOT) 28 IU/L 0-40 Not Available [facility] ([facility]) [address] [facility] [place], [address], 04/03/2020 08:12:23 04/02/2004/03/2020 CMP, serum or plasm a ALT (SGPT) 17 IU/L 0-32 Not Available [facility] ([facility]) [address] [facility] [place], [address], 04/03/2020 08:12:23 04/02/2004/03/2020 lipid panel , serum cholesterol, total 240 mg/dL 100-19 9 above high normal Not Available [facility] ([facility]) [address] [facility] [place], [address], 04/03/2020 08:12:24 04/02/2004/03/2020 lipid panel , serum triglyceride s 143 mg/dL 0-149 Not Available [facility] ([facility]) [address] [facility] [place], [address], 04/03/2020 08:12:24 04/02/2004/03/2020 lipid panel , serum HDL cholesterol 51 mg/dL >39 Not Available [facility] ([facility]) [address] [facility] [place], [address], 04/03/2020 08:12:24 04/02/2004/03/2020 lipid panel , serum VLDL cholesterol arturo 26 mg/dL 5-40 Not Available [facility] ([facility]) [address] [place], [address], 04/03/2020 08:12:24 04/02/2004/03/2020 lipid panel , serum LDL chol calc ([facility]) 163 mg/dL 0-99 above high normal Not Available [facility] ([facility]) [address] [facility] [place], [address], 04/03/2020 08:12:24 04/02/2004/03/2020 lipid panel , serum comment: 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 The Endoc rine Socie ty went on to furth er defin e vitam in D insuf ficie ncy as a level betwe en 21 and 29 ng/mL (2). 1. IOM (Inst itute of Medic ine). 2010. Dieta ry refer ence intak es for calci um and D. Ronna lazar [place]: The [facility] . 2. Kacie khan MF, Lilibeth gómez [place], Gage off-F errar i DAVIS, et al. Evalu ation , treat ment, and preve ntion of vitam in D defic iency : an Endoc rine Socie ty clini arturo pract ice guide line. JCEM. 2010; 96(7) :1911 -30. Not Available [facility] ([facility]) [address] [facility], [place], [address], 04/03/2020 08:12:25 Result Notes None recorded. Problems Name Problem SNOMED Code Status Onset Date Resolution Date Notes Provider Name and Address Organization Details Recorded Time Anxiety disorder 277170666 Active 2019 Linnea Maddoxo-Se nquiz [facility] 0 10:51:39 Borderline personality disorder Active 2019 Linnea Lombardoisao-Se nquiz [facility] 0 10:51:55 Depressive disorder 11784295 Active 2019 Linnea Maddoxo-Se nquiz [facility] 0 10:52:02 Tobacco user 407917318 Active 2019 Shannan Villanueva [facility] 0 10:24:23 Problem Notes None recorded. Procedures Surgical History Date Name Laterality Status Provider Name and Address Organization Details Recorded Time 0 Patient Education Assessment completed Natividad Rooney [facility] 06/13/2020 10:21:52 0 Patient Education Assessment completed Natividad Rooney [facility] 04/18/2020 10:01:14 0 Patient Education Assessment completed [facility] 03/28/2020 11:08:56 8 Most Recent Mammogram completed [facility] 03/28/2020 11:00:34 0 Date of Last Pap Smear completed [facility] 03/28/2020 10:59:54 Imaging Results None recorded. Procedure Notes None recorded. Medical Equipment None Reported. Allergies Allergen ID Allergen Name Allergen Category Reaction Reaction Severity Criticality Documentation Date Start Date Code Code System Note Provider Name and Address Organization Details Recorded Time 91458 Substance with sulfonami de structure and antibacte rial mechanism of action (substanc e) medicatio n rash severe Not available 03/28/2020 [id number] SNOMED Not Available Not Available Not Available Medications Name Sig Start Date Stop Date Status Note LastModified by Organization Details LastModified Time fluoxetine 40 mg capsule Take 1 capsule every day by oral route. active Not Available Not Available No t Available atorvastati n 40 mg tablet Take 1 tablet every day by oral route for 90 days. 2019 active Not Available Not Available Not Avai lable quetiapine 300 mg tablet Take 1 tablet every day by oral route at bedtime. active Not Available Not Available No t Available ibuprofen 800 mg tablet Take 1 tablet twice a day by oral route as needed for 90 days. 2019 active Not Available Not Available Not Avai lable [facility] Ibuprofen 800 mg tablet Take 1 tablet twice a day by oral route as needed. 03/28 completed Not Available Not Available Not Available buspirone 10 mg tablet Take 1 tablet twice a day by oral route. active Not Available Not Available No t Available celecoxib 100 mg capsule Take 1 capsule every day by oral route for 90 days. 2019 active Not Available Not Available Not Avai lable metaxalone 800 mg tablet TK 1 T PO BID PRN 06/13 completed Not Available Not Available Not Available Voltaren 1 % topical gel APPLY 2 GRAMS TO THE AFFECTED AREA(S) BY TOPICAL ROUTE 4 TIMES PER DAY 2019 active Not Available Not Available Not Avai lable Vitals Date Recorded Body weight Body mass index (BMI) Body height Heart rate Respiratory rate Body temperature Oxygen saturation Oxygen saturation in Arterial blood by Pulse oximetry Pain severity - 0-10 verbal numeric rating [Score] - Reported Systolic blood pressure Diastolic blood pressure Provider Name and Address Organization Details Last Updated DateTime 0 [address]7680.6 2 g 36.7 kg/m2 160.02 cm 89 /min 18 /min 98.2 [degF] 95 % 95 % 4 121 mm[Hg] 80 mm[Hg] Linnea MakSe nquilynn [facility] 0 10:45:07 Date Recorded Body height Body mass index (BMI) Body weight Heart rate Respiratory rate Body temperature Oxygen saturation Oxygen saturation in Arterial blood by Pulse oximetry Pain severity - 0-10 verbal numeric rating [Score] - Reported Systolic blood pressure Diastolic blood pressure Provider Name and Address Organization Details Last Updated DateTime 0 160.02 cm 36.7 kg/m2 68056.6 2 g 94 /min 20 /min 98.2 [degF] 98 % 98 % 5 139 mm[Hg] 86 mm[Hg] Natividad Rooney [facility] 0 09:57:14 Date Recorded Body height Body mass index (BMI) Body weight Body temperature Heart rate Respiratory rate Oxygen saturation Oxygen saturation in Arterial blood by Pulse oximetry Pain severity - 0-10 verbal numeric rating [Score] - Reported Systolic blood pressure Diastolic blood pressure Provider Name and Address Organization Details Last Updated DateTime 0 160.02 cm 36.7 kg/m2 18705.6 2 g 98.3 [degF] 87 /min 20 /min 97 % 97 % 4 131 mm[Hg] 85 mm[Hg] Natividad Rooney [facility] 0 10:24:52 Social History Question Answer Notes LastModified by Organizat ion Details LastModified Time Tobacco Smoking Status Current Every Day Smoker Linnea Matute [facility] 03/28/2020 10:54:21 Do You Have An Advance Directive? No Information not available 06/13/2020 What Is Your Level Of Alcohol Consumption? Occasional Information not available 03/28/2020 What Is Your Level Of Caffeine Consumption? Heavy Decaf Coffee Information not available 03/28/2020 How Much Tobacco Do You Chew? None Information not available 06/13/2020 What Is Your Code Status? Full Code Information not available 06/13/2020 Are You Currently Employed? No Information not available 03/28/2020 What Type Of Diet Are You Following? REGULAR Information not available 03/28/2020 Which Illicit Or Recreational Drugs Have You Used? Denies Information not available 03/28/2020 Do You Or Have You Ever Used E-cigarettes Or Vape? Never Used Electronic Cigarettes Information not available 04/18/2020 Education 12 Informatio n not available 03/28/2020 What Is Your Occupation? Unemployed Information not available 06/13/2020 Swimming/diving Yes Infor mation not available 03/28/2020 How Many Days In The Past Year Have You Had A Heavy Drinking Consumption (4+ Female, 5+ Male)? 0 Information not available 03/28/2020 Hard Of Hearing Or Deaf In One Or Both Ears? No Information not available 03/28/2020 HIV Risk Factors No Informat ion not available 06/13/2020 Legally Blind In One Or Both Eyes? No Information not available 03/28/2020 Live Alone Or With Others? With Others Information not available 03/28/2020 In The Last 14 Days Have You Traveled? No Information not available 03/28/2020 Have You Been Around Or Visited With Anyone (friends, Neighbors, Or Family) Who Have Traveled In The Past 14 Days? No Information not available 03/28/2020 Have You Been Tested For COVID19? No Information not available 03/28/2020 Have You Had Close Contact With Someone Who Has Been Tested For COVID19? No Information not available 03/28/2020 Do You Have Any Symptoms Now Or In The Past Two Weeks? No Information not available 03/28/2020 Marital Status Inform ation not available 03/28/2020 What Was The Date Of Your Most Recent Tobacco Screening? 04/18/2020 Information not available 04/18/2020 How Many Children Do You Have? 0 Information not available 03/28/2020 Performs Monthly Self-breast Exam? No Information not available 03/28/2020 Seat Belts Used Routinely Yes Information not available 03/28/2020 Are You Sexually Active? No Information not available 03/28/2020 Smoke Alarm In Home Yes Information not available 03/28/2020 At What Age Did You Start Smoking Tobacco? 18 Information not available 03/28/2020 Are You Passively Exposed To Smoke? Yes Information not available 03/28/2020 Do You Or Have You Ever Used Smokeless Tobacco? Never Used Smokeless Tobacco Information not available 04/18/2020 How Much Tobacco Do You Smoke? 0.5 PPD Information not available 03/28/2020 General Stress Level Medium Information not available 03/28/2020 Do You Use Sunscreen Routinely? Yes Information not available 03/28/2020 How Many Years Have You Smoked Tobacco? 30 Information not available 03/28/2020 Sex: Female Functional Status Question Answer Note LastModified by Organization D etails LastModified Time Are you able to care for yourself? Yes Information n ot available 03/28/2020 What is your exercise level? None Information not available 03/28/2020 Mental Status None recorded. Family History Relationship Description Onset Age of this Age Resolved Age Notes LastModified by Organization Details LastModified Time Father No current problems or disability 59 Non adaligki n's linfom a cguisaosenqui z Not available 03/28/2020 10:53:32 Mother No current problems or disability heart defect surger y, GI proble cguisaosenqui z Not available 03/28/2020 10:53:59 Medical History Condition Response Coronary Artery Disease N Gout N Other N Kidney Stones N Blood Diseases N Hyperthyroidism N Blood Transfusion N Depression Y COPD N Lung Disease N Hypothyroidism N Defects or Inherited Disease N Anxiety Disorder Y Vision or Eye Problems N Arthritis N Acid Reflux (GERD) N Cancer N Stroke N High Cholesterol N Liver Disease N Psychiatric/Mental Health Condition Y Fibromyalgia N Headaches N Hospitalizations N Learning Disorder N Thyroid Problems N Kidney or Bladder Problems N GI Problems N ADD/ADHD N Eating Disorder N Anemia N Diabetes N Seizures/Epilepsy N Tuberculosis N AIDS/HIV N Congestive Heart Failure (CHF) N Abuse/Domestic Violence N Asthma N Reflux/GERD N Hepatitis N Heart Disease N Hypertension N Chicken Pox N Autism Spectrum Disorder (ASD) N Osteoporosis N Gynecological History Statement/Question Response Abnormal Pap N STIs/STDs N HPV Vaccine N Current Control Method IUD Most Recent Mammogram 07/04/2017 Date of Last Colonoscopy Most Recent Bone Density Sexually Active? N Menses Monthly N Date of Last Pap Smear 07/04/2009 Sexual Problems? N Desired Control Method IUD Obstetrics History GPAL:G 0 P 0 0 3 0 Type Value Spontaneous 3 Immunizations Vaccine Type Date Status Note Provider Nam e and Address Organization Details Recorded Time Influenza, split virus, quadrivalent, PF 03/28/2020 completed Natividad Rooney [facility] 03/28/2020 15:32:05 Influenza, split virus, quadrivalent, PF 04/23/2019 [facility]2020 09:47:30 Influenza, split virus, quadrivalent, PF 04/22/2018 [facility]/18[facility]2020 09:47:30 Past Encounters Encounter ID Performer Location Encounter Start Date Encounter Closed Date Diagnosis/Indication Diagnosis SNOMED-CT Code Diagnosis ICD10 Code Diagnosis Note [id number] Shannan Villanueva [facility] [address] [place] [address] 03/28/2020 10:30:56 03/28/2020 12:30:24 Pain in left knee [id number] 02450 M25.562 Patient instructed to take Ibuprofen as needed, take with food. Apply Voltaren gel to area 4 times daily. Advised to obtain brace. Will try conservati ve therapy prior to obtaining MRI due to financial concerns. Hyperlipidemia 62339008 E78.5 Had CMP completed at [facility], LDL level 215, total cholestero l level 294. Result discussed with patient and patient instructed to follow cholestero l diet, lipid panel will be repeated and result will be discussed next visit. Start atorvastat in 40mg daily. HIV screen ing declined [id number] 13294 Z53.20 HIV screening declined at this time Hepatitis C screening 41 9271315 Z11.59 declined Tobacco user 130441970 Z 72.0 smoking cessation recommende d. Contracept ion care management [id number] Z30.9 Has had mirena IUD in place for approximat michele 13 years. 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 Obesity 264177793 E66.9 Lifestyle changes recommende d, tests order to evaluate patient's health state. Body mass index 30+ - obesity 323936078 E66.9 Z68.36 Lifestyle changes recommenda tion Screening for malignant neoplasm of breast 463106977 Z12.39 breast cancer screening Administra tion of influenza vaccine 44280017 Z23 [id number] [facility] [address] [place] [address] 04/18/2020 09:38:35 04/18/2020 10:37:28 Pain in left knee [id number] 13713 M25.562 Patient instructed to take Ibuprofen as needed, take with food. Apply Voltaren gel to area 4 times daily. Advised to obtain brace. Will try conservati ve therapy prior to obtaining MRI due to financial concerns.1 : cancel MRI; XR, knee, order and patient will be evaluated with the result when available. Hyperlipidemia 68387989 E78.5 Had CMP completed at [facility], LDL level 215, total cholestero l level 294. Result discussed with patient and patient instructed to follow cholestero l diet, lipid panel will be repeated and result will be discussed next visit. Start atorvastat in 40 mg daily. 04/18/20: Total cholestero l, 240 high and LDL 163, high; continue with current treatment. Tobacco user 464301083 Z 72.0 smoking cessation recommende d. Body mass index 30+ - obesity 991262543 E66.9 Z68.36 Lifestyle changes recommenda tion Screening for malignant neoplasm of breast 863007410 Z12.39 breast cancer screening is not done yet. Serum thyr oxine level outside reference range 198651025 R79.89 TSH normal, but T4 elevated, will repeat the test. Hyperkalemia 48998187 E8 7.5 potassium 5.4 high; result and precaution measures discussed with patient. [id number] Teresakati Villanueva [facility] [address] [place] [address] 06/13/2020 09:27:55 06/13/2020 10:44:06 Pain in left knee [id number] 86597 M25.562 medication renewed for left knee pain Hyperlipidemia 02236498 E78.5 Medication renewed for cholestero l. Low back pain 239925263 M54.5 Medication renewed as needed for pain, patient instructed to avoid taking celecoxib and ibuprofen together. Patient voiced understand ing. Body mass index 30+ - obesity 082967538 E66.9 Z68.36 Lifestyle changes recommende d. Health Concerns Section Related Observation LastModified by Organization Detai ls LastModified Time None Recorded Concern Status LastModified by Organization Details LastModified Time None Recorded Advance Directives Directive N: Payers Encounter Date Sequence Insurance Name Policy Number Policy Rivera Covered Member ID Rivera Member ID Guarantor Name 03/28/2020 SLIDING FEE SCHEDULE - DISCOUNT Julia Miles 04/18/2020 SLIDING FEE SCHEDULE - DISCOUNT Julia Miles 06/13/2020 SLIDING FEE SCHEDULE - DISCOUNT Julia Miles Notes Date Note Type Note Provider Name and Address Organization Details Recorded Time 03/28/2020 text/html 54 year old fema le patient is here complaint of left knee pain. Patient states that about 2 months ago she injured her knee while going up the stairs. The pain has been progressively getting worse and she is unable to walk for extended periods of time. She has trouble going up stairs, bending the knee and squatting. Denies swelling or redness to the knee. She has been taking Ibuprofen 800mg once or twice daily with good relief. Patient denies CP, DAVIS, fevers, chills, SOB, abdominal pain, nausea, vomiting, diarrhea, constipation. Shannan Villanueva [facility] [place] - [facility] 03/29/2020 21:41:02 04/18/2020 text/html 54 year old fema le patient is here for lab result and left knee pain follow up. Patient states that pain is the same, she would like to have an injection. Previously MRI ordered, patient states that she does not have insurance, therefore, she was unable to pay for the test. Patient denies CP, DAVIS, fevers, chills, SOB, abdominal pain, nausea, vomiting, diarrhea, constipation. LEO Falk - [facility] 04/21/2020 11:18:05 06/13/2020 text/html 54 year old fema le patient is here for medication refil. Patient states that she will be moving out of State. Patient with chronic knee pain. Patient denies CP, DAVIS, fevers, chills, SOB, abdominal pain, nausea, vomiting, diarrhea, or constipation. LEO Falk - [facility] 06/16/2020 14:43:02 OBGyn Episode No OBEpisode recorded.
== END 2024-10-03 08:35 | disposition home or self-care (01) ==
LOC: HO.MAMMO 08:34
PROVIDERS: PCP Family Medicine; Visit Provider Family Medicine
DX: Z12.31 Encounter for screening mammogram for malignant neoplasm of breast (principal)
CPT/HCPCS: 77063; 77067; 99396; 99459

== ENCOUNTER → 2024-10-03 08:45 | Outpatient (BNV) | payer OTHER, SELFPAY | PROVIDERS: PCP Family Medicine; Visit Provider Internal Medicine | DX: Z12.31 Encounter for screening mammogram for malignant neoplasm of breast (principal) | CPT/HCPCS: 77063; 77067 ==

== ENCOUNTER 2024-10-03 09:34 | Outpatient (AMB) | payer OTHER, SELFPAY ==
--- NOTE | 2024-10-03 09:48 | MHC.OFFVIS ---
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 Currently not sexually active. Denies any vaginal dryness or irritation. STI testing offered; she declined. Admits to craving sugars. Takes vit D. Not exercising. Last pap smear; 2020. Last mammogram; 2024-pending results. Colonoscopy is UTD. Denies any family history of breast, ovarian or colon cancer. [facility] Medical History Smoker Depression Anxiety Family History Father Non-Hodgkin lymphoma Paternal Grandmother Colon cancer Mother COPD (chronic obstructive pulmonary disease) Maternal Aunt History of breast cancer Social History Household Members: Friend(s) Housing: Apartment Alcohol intake: current Alcohol intake frequency: holidays/special occasions only Patient Tobacco Use Status: Current everyday Tobacco user Tobacco use type: Cigarette Cigarette Packs Per Day: 0.5 Cigarettes Per Day: 20 e-Cigarette/Vaping Use: Never Used service: No Current occupational status: unemployed Sexual orientation: Straight/Heterosexual Gender identity: Female Cognitive needs: No Hearing needs: No Vision needs: No Female Reproductive History Menstrual Menopause type: natural Total pregnancies: 0 Date of last pap smear: 09/12/20 (neg pap and hpv) Date of Mammogram: 09/30/23 (Birad 1) Review of Systems Const All systems reviewed & are unremarkable except as noted in HPI and below Reports as per HPI Eyes Reports no additional complaints ENT Reports no additional complaints Card Reports no additional complaints Resp Reports no additional complaints GI Reports as per HPI and Reports no additional complaints Reports as per HPI Musc Reports no additional complaints Skin/Breast Reports as per HPI Neuro Reports no additional complaints Psych Reports no additional complaints Endo Reports no additional complaints Alfonzo/Lymph Reports no additional complaints Aller/Immun Reports no additional complaints Physical Exam Vital Signs: Last Vital Signs BP 110/74 10/03/24 09:49 BMI result Body Mass Index 38.1 Const General: cooperative, healthy appearing, no acute distress, well developed and alert Orientation/consciousness: patient oriented x3 HEENT Head: Yes normal to inspection Eyes General: appearance normal, both eyes and all related structures Neck Neck: Yes normal visual inspection Thyroid: Thyroid normal Chest Chest palpation & inspection: normal inspection of the chest and other (no puckering, dimpling, peau de orange, retraction, discharge, masses) Breast/axilla inspection: normal inspection of the breasts Breast/axilla palpation: normal palpation of the breasts Resp Effort & Inspection: normal respiratory effort GI Inspection: Yes normal to inspection Palpation (GI): Soft to palpation Rectal Exam - Female: deferred General: Yes bladder normal to palpation External Female Exam: normal external appearance and normal appearance of the urethra Speculum Exam - Vagina: normal appearance of the vagina, normal palpation and normal vaginal discharge Speculum Exam - Cervix: normal appearance of the cervix and normal palpation Bimanual exam- vagina & uterus: normal bimanual exam, normal palpation, uterine size normal, bladder normal to palpation, normal palpation and non-tender Bimanual Exam- Adnexa, other: no masses Skin General skin exam: no rashes or lesions noted Rashes: no rashes Neuro General: patient oriented x3 Cognition (Neuro): normal cognition Extrem General: Yes normal to inspection Psych Attitude: cooperative Thought process: Normal thought process present Assessment & Plan Assessment & Plan (1) Encounter for well woman exam with routine gynecological exam: Code(s): Z01.419 - Encounter for gynecological examination (general) (routine) without abnormal findings Category: Medical Plan Discussed: Current recommendations for pap smears per ASCCP guidelines. Breast awareness, periodic self breast exams and yearly mammogram. Maintain a healthy lifestyle, well balanced diet including Calcium 1,200 mg and Vitamin D 600 IU daily, and routine exercise. Handouts on calcium, exercise and Mediterranean diet provided. Use of condoms for STI prevention if indicated. Discussed vaginal health in the role of probiotics. Contact the office with any postmenopausal bleeding. Patient verbalizes understanding and agrees to the plan of care. She was given opportunity to ask questions and all questions were answered to the best of my ability. 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 This note is constructed using voice recognition software. While every effort has been made to ensure accuracy, graves registration specialist errors may have been included. Coding Level of Care Code Est Pt Prev Care 40-64y(62806) Diagnoses Encounter for well woman exam with routine gynecological exam Z01.419
[2024-10-03 09:49] VITALS: BP 110/74; BMI 38.1
== END 2024-10-03 11:26 | disposition home or self-care (01) ==
LOC: HO.HWS 09:34
PROVIDERS: PCP Family Medicine; Visit Provider Advanced Practice Midwife
DX: Z01.419 Encounter for gynecological examination (general) (routine) without abnormal findings (principal)
CPT/HCPCS: 99396; 99459